=== PATIENT | male | born 1965 | race Caucasian/White ===

== ENCOUNTER → 2019-02-20 | Outpatient (CLI) | payer OTHER ==
[2014-05-21 12:20] VITALS: BP 136/69
[~2019-02-20] MED LIST: DOCU-150 PO; HYDR-2679 PO; MULT-246 PO; OMEG1CAP16 PO
--- NOTE | 2019-02-20 13:32 | RAD ---
DATE: 02/20/2019 12:00 PM EXAM: DIGITAL DIAGNOSTIC BILATERAL, BREAST LEFT HISTORY: imaging evaluation of a palpable area of concern within the left breast COMPARISON: None High-resolution targeted sonographic evaluation of the left breast was performed at the region of palpable abnormality. Subsequently mammogram was performed. Bilateral full field craniocaudal and mediolateral oblique images were obtained using digital technique. This study was interpreted with the benefit of Computerized Aided Detection (CAD). ULTRASOUND FINDINGS: Targeted ultrasound of the patient detected area of concern was performed within the left breast. 3:00 position, 10 cm from the nipple: A 2.4 x 2.5 x 1.3 cm solid, hypoechoic mass is seen with internal vascularity. This was then further assessed by mammography. Breast Density: FATTY The Breast Parenchyma is primarily fatty replaced. Breast parenchyma level density A. A 2.5 cm left breast mass is seen within the upper outer left breast corresponding with the ultrasound abnormality. No suspicious masses, microcalcifications or architectural distortion is present to suggest malignancy in the right breast. The visualized axillae are unremarkable. IMPRESSION: Left breast mass for which image guided biopsy is recommended. BI-RADS CATEGORY: 4 SUSPICIOUS ABNORMALITY- BIOPSY SHOULD BE CONSIDERED RECOMMENDED FOLLOW-UP: BIO BIOPSY [id number] biopsy left breast mass can be performed. PQRS compliance statement: Patient information was entered into a reminder system with a target due date for the next mammogram. Mammography is a sensitive method for finding small breast cancers, but it does not detect them all and is not a substitute for careful clinical examination. A negative mammogram does not negate a clinically suspicious finding and should not result in delay in biopsying a clinically suspicious abnormality. "Our facility is accredited by the [employer] Mammography Program."
== END | disposition home or self-care (01) ==
LOC: US 11:24
PROVIDERS: ATTEND Nurse Practitioner Adult Health
DX: N63.21 Unspecified lump in the left breast, upper outer quadrant (principal)
CPT/HCPCS: 76641; 77066